=== PATIENT | female | born 2000 ===

== ENCOUNTER 2025-08-27 11:00 | Day surgery (SDC) | payer OTHER ==
[2025-08-27] MEDS ORDERED: CEFAZOLIN SODIUM 1,000 MG VIAL ONE (12:10)
[2025-08-27] MEDS ORDERED: POVIDONE-IODINE 118 ML BOTT TOP ONE (13:08)
[2025-08-27] MEDS ORDERED: LIDOCAINE HCL 1%/EPINEPHRINE 10 ML VIAL IJ ONE (15:30)
[2025-08-27] MEDS ORDERED: SUGAMMADEX SODIUM 200 MG/2 ML VIAL IV ONE (15:43)
[2025-08-27] MEDS ORDERED: KETOROLAC TROMETHAMINE 60 MG VIAL IM ONE (16:30)
== END 2025-08-27 18:10 | disposition home or self-care (01) ==
LOC: CIR.AMB 11:00
PROVIDERS: ATTEND Specialist
DX: Z30.2 Encounter for sterilization (principal)